=== PATIENT | female | born 1935 | race Caucasian/White ===

== ENCOUNTER 2016-12-04 08:30 | Inpatient (IN) | payer MEDICARE, BC ==
--- NOTE | ~2016-12-04 | IDS ---
Interim Discharge Summary [facility] [address] [place]. [address] NAME: BERKLEY MAYER : 35 STATUS : ADM IN PAT#: [id number] AGE: 81 ADM/REG DATE : 12/04/16 MR#: [id number] REPORT SERV DATE: 12/07/16 DICTATED BY: CANDE PRAJAPATI DATE: 12/07/16 REPORT STATUS : Draft TRANSCRIBED BY: MODL DATE: 12/07/16 ADMISSION DATE: 12/04/2016 DISCHARGE DATE: CURRENT HOSPITAL DIAGNOSES: 1. Congestive heart failure, EF approximately 20% to 25%. 2. Acute kidney injury, improving. 3. Hyperkalemia, improving. 4. Nonsustained ventricular tachycardia, improving. CONSULTATIONS: Cardiology. PROCEDURES: As listed on discharge summary by Dr. Stratton on 12/06. Also, cardiac catheterization done on 12/04 showing an EF of 20%, 20% stenosis in the LAD, small dominant RCA with 10% to 20% obstruction. CURRENT PHYSICAL FINDINGS AND HISTORY OF PRESENT ILLNESS: Please see initial dictated H and P, as well as discharge summary by Dr. Stratton on 12/06. The patient was admitted to [facility] for CHF and was transferred to [facility] for cardiac catheterization for etiology of her CHF. The patient was transferred and underwent a noncomplicated coronary catheterization. There was no significant disease to account for a decreased EF. She was started on diuretics and JONATHAN inhibitors, maintaining a reasonable blood pressure. She did have a slightly abnormal creatinine prior to her procedure and was felt to be at risk for nephropathy, so she was not discharged immediately post catheterization. Her creatinine was 1.4 on admission, averaging 1.3 to 1.5. She had a maximum of 2.2 on 12/06; however, this may have been somewhat volume related. Current creatinine is 1.33. The patient was started on JONATHAN inhibitor, diuretics, and spironolactone. She had previously been on Lasix and metoprolol at home. When her creatinine and potassium imtiaz, these were held. The patient received a small amount of IV fluid and is currently feeling better. Current disposition for Ms. Mayer is to increase her activity, decrease her O2 dependence, mobilize her, restart her medications as tolerated monitoring her symptoms, renal function, and potassium appropriately. Cardiology continues to follow. ARNIEF/MULU Cande Prajapati M.D. / [id number] CC: Agatha Yang M.D.
--- NOTE | ~2016-12-04 | DS ---
Discharge Summary [facility] [address] [facility] [place]. [address] NAME: BERKLEY MAYER : 35 STATUS : ADM IN PAT#: [id number] AGE: 81 ADM/REG DATE : 12/04/16 MR#: [id number] REPORT SERV DATE: 12/10/16 DICTATED BY: MAYRA MARQUEZ DATE: 12/10/16 REPORT STATUS : Draft TRANSCRIBED BY: MODL DATE: 12/10/16 ADMISSION DATE: 12/04/2016 DISCHARGE DATE: 12/10/2016 DISCHARGE DIAGNOSES: 1. Acute pulmonary edema, improved. 2. Acute hypoxic respiratory failure, improved, now patient is not requiring the resting home oxygen supply. 3. Acute kidney injury after diuretic use, recovered. 4. Acute systolic dysfunction. Ejection fraction of 20-25% status post cardiac cath with nonischemic cardiomyopathy. 5. Nonsustained ventricular tachycardia, improving. CONSULTANTS: [facility]. PROCEDURE: Cardiac catheterization, 12/04, showed a minimal coronary artery disease. Etiology for heart failure is thought to be nonischemic cardiomyopathy. HISTORY OF PRESENT ILLNESS: This is an 81-year-old female patient, who came to the hospital with initially short of breath at [facility]. Please see dictated H and P done by Dr. Stratton. HOSPITAL COURSE: Please see dictated interim discharge summary. The patient was initially admitted to the hospital with a pulmonary edema with hypoxia at the [facility], had evaluation and showed a decreased ejection fraction and dilated left ventricle. Therefore, the patient need to be transferred to [facility] to get further evaluation including cardiac catheterization. The cardiac catheterization was done in December 04. During the hospitalization, she was treated with IV diuretics. After the IV diuretics, she went into acute renal failure and was treated with gentle hydration and she improved. Overall, had a significant improvement regarding her symptoms and hypertension and heart failure. She is not requiring any oxygen use at this point. Seen by the physical therapy, recommend a rehab. The patient is arranged to be discharged to [facility]. Her metoprolol was changed to Coreg 6.25 mg twice a day by the delivery associate. DISCHARGE MEDICATIONS: 1. Aspirin 325 mg once a day. 2. Coreg 6.25 mg twice a day. 3. Lasix 40 mg once a day. 4. MiraLAX powder once a day. 5. Pravachol 40 mg once a day. 6. Flecainide was discontinued. DISPOSITION: The patient is discharged to [facility] for the rehab. Discharge Summary [address] [address] NAME: BERKLEY MAYER : 35 STATUS : ADM IN PAT#: [id number] AGE: 81 ADM/REG DATE : 12/04/16 MR#: [id number] REPORT SERV DATE: 12/10/16 DICTATED BY: MAYRA MARQUEZ DATE: 12/10/16 REPORT STATUS : Draft TRANSCRIBED BY: MULU DATE: 12/10/16 TIME SPENT: More than 30 minutes in discharge coordination and education. EKL/MODL Mayra Marquez M.D. / [id number] CC: Agatha Kim M.D.
[~2016-12-04 08:30] MED LIST: ASA5GR PO; ASABAYER PO; FLECAINIDE50 MG PO; KLOR-CON 1010 MEQ PO; KLOR-CON M1010 MEQ PO; L20; L40 PO; LOP25 PO; LOP50 PO; MICRO-K10 MEQ; NORV5 PO; PRAVACHOL40 MG PO; PRIN5 PO; TAMBO50 PO; TOPXL25
[2016-12-05 04:44] LABS: BASOPHILS 0.5 %; BASOPHILS ABSOLUTE 0.03 10/3/uL (0.0-0.16); EOSINOPHILS 5.6 %; EOSINOPHILS ABSOLUTE 0.32 10/3/uL (0.0-0.53); HEMATOCRIT 36.5 % (36.0-48.0); HEMOGLOBIN 11.6 g/dL (12.0-16.0); IMMATURE GRANULOCYTES 0.2 %; IMMATURE GRANULOCYTES ABSOLUTE 0.01 10/3/uL (0.0-0.11); LYMPHOCYTES 23.5 %; LYMPHOCYTES ABSOLUTE 1.34 10/3/uL (0.67-4.30); MEAN CORPUS HGB CONC 31.8 g/dL (32.0-36.0); MEAN CORPUSCULAR HEMOGLOB 28.5 pg (26.0-34.0); MEAN PLATELET VOLUME 11.2 fL (9.2-13.0); MONOCYTES 9.5 %; MONOCYTES ABSOLUTE 0.54 10/3/uL (0.21-1.20); NEUTROPHILS 60.7 %; NEUTROPHILS ABSOLUTE 3.47 10/3/uL (2.02-8.40); PLATELET COUNT 193 10/3/uL (150-400); RBC DISTRIBUTION WIDTH 15.3 % (12.0-16.0); RED CELL COUNT 4.07 10/6/uL (4.0-5.6); WHITE BLOOD CELLS 5.7 10/3/uL (4.5-10.5)
[2016-12-05 04:45] LABS: MANUAL DIFF NO %; MEAN CORPUSCULAR VOLUME 89.7 fL (80-100)
[2016-12-05 05:01] LABS: CALCIUM, SERUM 8.5 MG/DL (8.5-10.4); CHLORIDE, SERUM 109 MMOL/L (96-112); CREATININE 1.31 MG/DL (0.55-1.02); GFR AFRICAN AMERICAN 44 ML/MIN (>=60); GFR NON AFRICAN AMERICAN 38 ML/MIN (>=60); GLUCOSE, SERUM 89 MG/DL (60-99); POTASSIUM, SERUM 4.8 MMOL/L (3.5-5.3); SODIUM, SERUM 143 MMOL/L (135-148)
[2016-12-05 05:03] LABS: BUN (BLOOD UREA NITROGEN) 34 MG/DL (6-23); CO2 (CARBON DIOXIDE) 22 MMOL/L (24-34)
[2016-12-06 06:21] LABS: CALCIUM, SERUM 8.6 MG/DL (8.5-10.4); CHLORIDE, SERUM 105 MMOL/L (96-112); CO2 (CARBON DIOXIDE) 24 MMOL/L (24-34); GLUCOSE, SERUM 88 MG/DL (60-99); POTASSIUM, SERUM 5.6 MMOL/L (3.5-5.3); SODIUM, SERUM 138 MMOL/L (135-148)
[2016-12-06 06:36] LABS: BUN (BLOOD UREA NITROGEN) 41 MG/DL (6-23); CREATININE 2.07 MG/DL (0.55-1.02); GFR AFRICAN AMERICAN 25 ML/MIN (>=60); GFR NON AFRICAN AMERICAN 22 ML/MIN (>=60)
[2016-12-06 16:55] LABS: BUN (BLOOD UREA NITROGEN) 49 MG/DL (6-23); CALCIUM, SERUM 8.5 MG/DL (8.5-10.4); CHLORIDE, SERUM 103 MMOL/L (96-112); CO2 (CARBON DIOXIDE) 24 MMOL/L (24-34); GFR AFRICAN AMERICAN 24 ML/MIN (>=60); GFR NON AFRICAN AMERICAN 20 ML/MIN (>=60); GLUCOSE, SERUM 107 MG/DL (60-99); POTASSIUM, SERUM 5.4 MMOL/L (3.5-5.3); SODIUM, SERUM 138 MMOL/L (135-148)
[2016-12-07 05:53] LABS: CALCIUM, SERUM 8.9 MG/DL (8.5-10.4); CHLORIDE, SERUM 105 MMOL/L (96-112); CO2 (CARBON DIOXIDE) 23 MMOL/L (24-34); GFR AFRICAN AMERICAN 43 ML/MIN (>=60); GFR NON AFRICAN AMERICAN 37 ML/MIN (>=60); GLUCOSE, SERUM 86 MG/DL (60-99); POTASSIUM, SERUM 4.8 MMOL/L (3.5-5.3); SODIUM, SERUM 137 MMOL/L (135-148)
[2016-12-07 06:00] LABS: BUN (BLOOD UREA NITROGEN) 43 MG/DL (6-23); CREATININE 1.33 MG/DL (0.55-1.02)
[2016-12-08 05:41] LABS: CALCIUM, SERUM 8.5 MG/DL (8.5-10.4); CHLORIDE, SERUM 105 MMOL/L (96-112); CO2 (CARBON DIOXIDE) 22 MMOL/L (24-34); CREATININE 1.03 MG/DL (0.55-1.02); GFR AFRICAN AMERICAN 59 ML/MIN (>=60); GFR NON AFRICAN AMERICAN 51 ML/MIN (>=60); GLUCOSE, SERUM 92 MG/DL (60-99); POTASSIUM, SERUM 4.6 MMOL/L (3.5-5.3); SODIUM, SERUM 137 MMOL/L (135-148)
[2016-12-08 05:42] LABS: BUN (BLOOD UREA NITROGEN) 34 MG/DL (6-23)
[2016-12-09 06:13] LABS: BASOPHILS 0.8 %; BASOPHILS ABSOLUTE 0.04 10/3/uL (0.0-0.16); EOSINOPHILS 4.2 %; EOSINOPHILS ABSOLUTE 0.21 10/3/uL (0.0-0.53); HEMATOCRIT 36.8 % (36.0-48.0); HEMOGLOBIN 11.9 g/dL (12.0-16.0); IMMATURE GRANULOCYTES 0.2 %; IMMATURE GRANULOCYTES ABSOLUTE 0.01 10/3/uL (0.0-0.11); LYMPHOCYTES 29.1 %; LYMPHOCYTES ABSOLUTE 1.47 10/3/uL (0.67-4.30); MANUAL DIFF NO %; MEAN CORPUS HGB CONC 32.3 g/dL (32.0-36.0); MEAN CORPUSCULAR HEMOGLOB 29.1 pg (26.0-34.0); MEAN PLATELET VOLUME 11.3 fL (9.2-13.0); MONOCYTES 15.6 %; MONOCYTES ABSOLUTE 0.79 10/3/uL (0.21-1.20); NEUTROPHILS 50.1 %; NEUTROPHILS ABSOLUTE 2.54 10/3/uL (2.02-8.40); PLATELET COUNT 191 10/3/uL (150-400); RBC DISTRIBUTION WIDTH 14.5 % (12.0-16.0); RED CELL COUNT 4.09 10/6/uL (4.0-5.6); WHITE BLOOD CELLS 5.1 10/3/uL (4.5-10.5)
[2016-12-09 06:22] LABS: CALCIUM, SERUM 8.5 MG/DL (8.5-10.4); CHLORIDE, SERUM 106 MMOL/L (96-112); CO2 (CARBON DIOXIDE) 20 MMOL/L (24-34); CREATININE 0.94 MG/DL (0.55-1.02); GFR AFRICAN AMERICAN 66 ML/MIN (>=60); GFR NON AFRICAN AMERICAN 57 ML/MIN (>=60); GLUCOSE, SERUM 94 MG/DL (60-99); PHOSPHORUS, SERUM 3.6 MG/DL (2.5-4.5); POTASSIUM, SERUM 4.2 MMOL/L (3.5-5.3); SODIUM, SERUM 136 MMOL/L (135-148)
[2016-12-09 06:26] LABS: BUN (BLOOD UREA NITROGEN) 29 MG/DL (6-23)
[2017-06-01] MEDS ORDERED: ASAB PO (10:34)
[2017-06-01] MEDS ORDERED: SINGULAIR1 PO (10:34)
[2017-06-01] MEDS ORDERED: COREG6 PO (10:35)
[2017-06-01] MEDS ORDERED: SYN.05 PO (10:35)
== END 2016-12-10 17:19 | DRG 286 ==
LOC: CORLMH 08:30 → SSU1 10:14 → 5NO 12-05 15:08
PROVIDERS: Internal Medicine; Internal Medicine Cardiovascular Disease
PROC: 5A09357 Assistance with Respiratory Ventilation, Less than 24 Consecutive Hours, Continuous Positive Airway Pressure (ICD-10-PCS; 2016-12-03)
PROC: 4A023N7 Measurement of Cardiac Sampling and Pressure, Left Heart, Percutaneous Approach (ICD-10-PCS; principal; 2016-12-04)
PROC: B2151ZZ Fluoroscopy of Left Heart using Low Osmolar Contrast (ICD-10-PCS; 2016-12-04)
PROC: B2111ZZ Fluoroscopy of Multiple Coronary Arteries using Low Osmolar Contrast (ICD-10-PCS; 2016-12-04)
DX: I11.0 Hypertensive heart disease with heart failure (principal); J96.01 Acute respiratory failure with hypoxia; I47.2 Ventricular tachycardia; N17.9 Acute kidney failure, unspecified; I42.9 Cardiomyopathy, unspecified; I50.23 Acute on chronic systolic (congestive) heart failure; I25.10 Atherosclerotic heart disease of native coronary artery without angina pectoris; Z85.79 Personal history of other malignant neoplasms of lymphoid, hematopoietic and related tissues; E78.5 Hyperlipidemia, unspecified; I35.1 Nonrheumatic aortic (valve) insufficiency
CPT/HCPCS: 36120; 36600; 71010; 80048; 80069; 82550; 82553; 82805; 83735; 83880; 84484; 85025; 85347; 85379; 85610; 85730; 87804; 93005; 93458; 94640; 94660; 96374; 96375; 96376; 97162-GP; 99152; 99153; 99291; A9270-GY; C1769; C1887; C1894; C8929; G8978-CK-GP; G8979-CI-GP; J1940; J2250; J2405; J3010; Q9957; Q9967